=== PATIENT | female | born 1950 | race Caucasian/White ===

== ENCOUNTER 2018-02-27 09:33 | Outpatient (CLI) | payer MEDICARE ==
--- NOTE | 2018-02-27 11:48 | RAD ---
CERVICAL SPINE SERIES 3 VIEWS: Date: 02/27/18 HISTORY: Cervical radiculopathy. FINDINGS: The vertebral bodies maintain normal height. Disc narrowing seen at C5-6. There are moderate degenera tive facet changes present. Very minimal anterolisthesis of C5 on C6 is noted. IMPRESSION: Arthritic changes of spine, mainly related to prominent degenerative facet changes in the mid cervica l spine region. POS: [facility]
--- NOTE | 2018-02-27 12:26 | MRI ---
MRI LUMBAR SPINE WITHOUT CONTRAST: HISTORY: Low back pain with numbness and right foot x 6-7 weeks. COMPARISON: None. TECHNIQUE: Lumbar spine MRI is performed without intravenous Gadolinium administration. Multisequential, multip lanar imaging is performed. FINDINGS: There is 3.7 mm of anterolisthesis of L4 upon L5. Lumbar spine vertebral body height is maintained. There is no fracture. No significant STIR hyperintensity to suggest vertebral body edema or ligamen tous injury. Symmetric signal intensity of the psoas muscles. Visualized solid organs are unremarkable. Conus medullaris terminates at the inferior aspect of L1. T12-L1: Adequate disk hydration. No significant central canal stenosis. Foramen are patent. L1-L2: Adequate disk hydration. No significant central canal stenosis. Foramen are patent. L2-L3: Adequate disk hydration. No significant loss of disk space height. Nevertheless, there is g eneralized disk bulge, ligamentum flavum thickening, and facet hypertrophy without significant centra l canal stenosis. Mild right foraminal narrowing. Left neural foramen is patent. L3-L4: Minimal disk desiccation. Minimal loss of disk space height. Generalized disk bulge, ligame ntum flavum thickening, and facet hypertrophy result in minimal central canal stenosis. Minimal encr oachment upon both subarticular zones without obscuration of either traversing L4 nerve root. The ri ght neural foramen is patent. Mild left foraminal narrowing. L4-L5: Adequate disk hydration. No significant loss of disk space height. Generalized disk bulge, ligamentum flavum thickening, and facet hypertrophy result in mild central canal stenosis. Narrowing of both subarticular zones with partial obscuration of bilateral traversing L5 nerve roots. Neural foramen are patent bilaterally. L5-S1: Desiccation with moderate loss of disk space height. Generalized disk bulge. Disk material abuts but does not obscure either traversing S1 nerve root. No significant stenosis of the thecal sa c. Severe right and moderate left foraminal narrowing. IMPRESSION: 1. Severe right foraminal narrowing. Moderate to severe left foraminal narrowing, at L5-S1. 2. Disk material abuts but does not obscure either traversing L5 nerve root. POS: [facility]
--- NOTE | 2018-02-27 15:01 | MRI ---
MRI CERVICAL SPINE WITHOUT CONTRAST: HISTORY: Cervical radiculopathy. Neck and right shoulder pain with associated numbness in the 2nd and 3rd dig its, x 6-7 weeks. COMPARISON: None. TECHNIQUE: Cervical spine MRI is performed without contrast. Multisequential, multiplanar imaging is performed. FINDINGS: Appropriate T1 marrow signal intensity of the cervical vertebrae. Vertebral body height is maintaine d. There is no fracture. No significant STIR hyperintensity to suggest vertebral body edema or liga mentous injury. Visualized brain parenchyma, cervicomedullary junction, cervical cord, and the upper thoracic cord cm ve a normal size and signal intensity. Note is made of a partially empty sella. C2-C3: No significant disk-osteophyte complex. No significant central canal stenosis. Moderate rig ht foraminal narrowing. The left neural foramen is mildly narrowed. C3-C4: There is a broad-based disk-osteophyte complex with a central component that abuts the thecal sac. There is mild central canal stenosis. T neural foramen is moderately narrowed. Moderate left foraminal narrowing. C4-C5: There is a central disk-osteophyte complex that abuts the thecal sac and deforms the cord. M ild central canal stenosis. No T2 hyperintensity of the cord. Mild bilateral foraminal narrowing. C5-C6: Central disk-osteophyte complex abuts the thecal sac. Mild central canal stenosis. Patent b ilateral foraminal narrowing. C6-C7: Central/right paracentral disk-osteophyte complex effaces the ventral subarachnoid space. Th ere is deformity of the right hemicord. Moderate central canal stenosis. Mild to moderate bilateral foraminal narrowing. C7-T1: No significant central canal stenosis or foraminal narrowing. IMPRESSION: Degenerative changes of the cervical spine as above. POS: [facility]
== END 2018-02-27 09:34 | disposition home or self-care (01) ==
LOC: MRI 09:33
PROVIDERS: ATTEND Neurological Surgery
DX: M47.22 Other spondylosis with radiculopathy, cervical region (principal); M99.83 Other biomechanical lesions of lumbar region
CPT/HCPCS: 72040; 72141; 72148

== ENCOUNTER 2018-03-14 06:02 | Day surgery (SDC) | payer MEDICARE ==
[2018-03-13 13:01] VITALS: BMI 28.8
[2018-03-14] MEDS ORDERED: Thrombin 5000 UNITS/5 ML VIAL ONE (06:24)
[2018-03-14] MEDS ORDERED: Sodium Chloride 0.9% 10 ML ONE (06:24)
[2018-03-14] MEDS ORDERED: CEFAZOLIN/Water 2 GM/20 ML SYRINGE ONE (06:49)
[2018-03-14 06:59] LABS: #Basophils 0.1 thou/uL (0.0-0.2); #Eosinphils 0.2 thou/uL (0.0-0.7); #Lymphocytes 3.7 thou/uL (1.20-3.40); #Monocytes 0.7 thou/uL (0.11-0.59); #Neutrophils 3.7 thou/uL (1.40-6.50); %Basophils 1.4 % (0.0-1.0); %Monocytes 8.1 % (0.0-10.0); %Neutrophils 44.5 % (42.0-75.0); Hemoglobin 14.1 g/dL (12.0-16.0); Mean Corpuscular HGB CONC 32.7 g/dL (32.0-36.0); Mean Corpuscular Hemoglobin 29.1 pg (27.0-31.0); Mean Platelet Volume 8.4 fL (7.4-10.4); Platelet Count 302 thou/uL (130-400); RBC Distribution Width 12.4 % (11.5-14.5); Red Blood Cell (RBC) Count 4.84 mill/uL (4.20-5.40); White Blood Cell (WBC) Count 8.4 thou/uL (4.8-10.8)
[2018-03-14] MEDS ORDERED: Fentanyl 100 MCG/2 ML VIAL ONE ×2 (06:59→09:20)
[2018-03-14 07:19] LABS: Anion Gap 11 mmol/L (10-20); BUN (Urea Nitrogen) 14 mg/dL (9.8-20.1); Calc. Creatinine Clearance 80 mL/min (70-130); Calcium 9.8 mg/dL (7.8-10.44); Carbon Dioxide 26 mmol/L (23-31); Chloride 105 mmol/L (98-107); Estimated GFR-MDRD 72; Glucose 119 mg/dL (80-115); Potassium 4.2 mmol/L (3.5-5.1); Sodium 138 mmol/L (136-145)
--- NOTE | 2018-03-14 08:31 | OP ---
DATE OF PROCEDURE: 03/14/2018 SURGEON: Zenon Coyle M.D. KAIWHAKAHAERE: Zeyad Soria PA-C PROCEDURED PERFORMED: Anterior cervical discectomy C6-C7, interbody arthrodesis, intervertebral biom echanical device, local morselized autograft, demineralized bone matrix, anterior titanium instrument ation, C6-C7. DESCRIPTION IN DETAIL: The patient was brought to the operating room and intubated. She was positio rebecca supine with head in modest extension on a gel-filled donut. Incision was made in the right prece rvical area and dissecting medial to the sternocleidomastoid muscle, identified the anterior cervical spine and our level was confirmed by x-ray. We debrided anterior osteophytes, placed distraction ac ross the disc space and using the operating microscope and microdissection techniques, we completely removed the intervertebral disc. We decompressed the spinal cord and neural elements. The bony endp lates were then decorticated for the purpose of arthrodesis and appropriately sized intervertebral bi omechanical PEEK device was brought into the field, filled with demineralized bone matrix, local mors elized autograft, and tapped into place securely at C6-C7. Next, an anterior plate was brought into the field and secured to C6 and C7 using two 14 mm screws at each level. The wound was then extensiv ravinder irrigated, immaculate hemostasis was secured, and the wound was closed in anatomic layers.
[2018-03-14] MEDS ORDERED: HYDROmorphone 2 MG/ML VIAL ONE (08:48)
[2018-03-14] MEDS ORDERED: tiZANidine HCl 4 MG TAB ONE (09:09)
[2018-03-14] MEDS ORDERED: Promethazine HCl 25 MG/ML VIAL ONE (10:31)
[2018-03-14] MEDS ORDERED: Ondansetron HCl/PF 4 MG/2 ML Vial ONE (13:14)
[2018-03-14] MEDS ORDERED: Glycopyrrolate 0.2 MG/ML 5 ML SYRINGE ONE (13:14)
[2018-03-14] MEDS ORDERED: Dexamethasone 20 MG/5 ML VIAL ONE (13:14)
[2018-03-14] MEDS ORDERED: PROPOFOL 200 MG/20 ML VIAL ONE (13:14)
[2018-03-14] MEDS ORDERED: Lidocaine 1% PF 5 ML VIAL ONE (13:14)
[2018-03-14] MEDS ORDERED: HYDROcodone/Acetaminophen 5/325 mg Tablet ONE (13:25)
== END 2018-03-14 13:42 | disposition home or self-care (01) ==
LOC: SDC 06:02
PROVIDERS: ATTEND Neurological Surgery
PROC: 0RG10A0 Fusion of Cervical Vertebral Joint with Interbody Fusion Device, Anterior Approach, Anterior Column, Open Approach (ICD-10-PCS; principal; 2018-03-14)
PROC: 0RT30ZZ Resection of Cervical Vertebral Disc, Open Approach (ICD-10-PCS; 2018-03-14)
DX: M54.12 Radiculopathy, cervical region (principal); E11.9 Type 2 diabetes mellitus without complications; I48.91 Unspecified atrial fibrillation; Z79.84 Long term (current) use of oral hypoglycemic drugs; Z79.899 Other long term (current) drug therapy; Z91.040 Latex allergy status; Z88.8 Allergy status to other drugs, medicaments and biological substances
CPT/HCPCS: 36415; 76001; 80048; 85025; 93005; 93010; 96374; 96375; A4216; C1713; C1776; J1100; J1170; J2001; J2405; J2550; J2704; J3010; J3490

== ENCOUNTER 2018-03-29 14:40 | Outpatient (CLI) | payer MEDICARE ==
--- NOTE | 2018-03-29 16:22 | RAD ---
CERVICAL SPINE THREE VIEWS: 03/29/18 COMPARISON: 02/27/18 HISTORY: Cervicalgia. Status post surgery. FINDINGS: Anterior fusion plate with transvertebral body screw at C6 and C7. No perihardware lucency. Disc pros thesis at C6-C7 is noted. There is persistent anterolisthesis of C5 upon C6 measuring 2 mm. There is stable mild loss of disc space height at C5-C6. There is no prevertebral soft tissue swelling. Preden lo space is normal. Limited evaluation of the odontoid process on the open mouth projection. On the AP projection, there is stable facet hypertrophy. IMPRESSION: 1. Interval cervical fusion at C6-C7. 2. No evidence of perihardware lucency. 3. Stable grade I anterolisthesis of C5 upon C6. POS: [facility]
== END 2018-03-29 14:41 | disposition home or self-care (01) ==
LOC: TBSIIMAG 14:40
PROVIDERS: ATTEND Neurological Surgery
DX: M54.2 Cervicalgia (principal); M43.12 Spondylolisthesis, cervical region; Z98.1 Arthrodesis status
CPT/HCPCS: 72040

== ENCOUNTER 2018-05-09 15:07 | Outpatient (CLI) | payer MEDICARE ==
--- NOTE | 2018-05-09 16:33 | RAD ---
CERVICAL SPINE FOUR VIEWS: History: Cervicalgia. Follow up cervical spine surgery. Comparison: 03-29-18 FINDINGS: Cervical vertebrae maintain height. There continues to be a slight anterolisthesis at C5-6 noted on t he prior exam, stable. Anterior plate and screws at C6-7 with interbody implant appears stable. Align ment is otherwise preserved. Facet hypertrophy is noted in the mid cervical spine, especially promine nt on the right in the AP projection. IMPRESSION: Stable cervical spine findings when compared to 03-29-18. POS: [facility]
== END 2018-05-09 15:08 | disposition home or self-care (01) ==
LOC: TBSIIMAG 15:07
PROVIDERS: ATTEND Neurological Surgery
DX: M54.12 Radiculopathy, cervical region (principal)
CPT/HCPCS: 72040

== ENCOUNTER 2018-05-25 06:14 | Inpatient (IN) | payer MEDICARE ==
[2018-05-24 10:49] VITALS: BMI 28.8
[2018-05-25] MEDS ORDERED: Sodium Chloride 0.9% 10 ML ONE (06:29)
[2018-05-25 06:51] LABS: #Basophils 0.2 thou/uL (0.0-0.2); #Eosinphils 0.1 thou/uL (0.0-0.7); #Monocytes 0.7 thou/uL (0.11-0.59); #Neutrophils 3.8 thou/uL (1.40-6.50); %Basophils 1.8 % (0.0-1.0); %Eosinophils 1.2 % (0.0-10.0); %Lymphocytes 45.3 % (21.0-51.0); %Monocytes 8.4 % (0.0-10.0); %Neutrophils 43.3 % (42.0-75.0); Mean Corpuscular Hemoglobin 29.6 pg (27.0-31.0); Mean Corpuscular Volume 87.3 fL (78.0-98.0); Mean Platelet Volume 8.3 fL (7.4-10.4); Platelet Count 327 thou/uL (130-400); RBC Distribution Width 12.4 % (11.5-14.5); Red Blood Cell (RBC) Count 4.73 mill/uL (4.20-5.40); White Blood Cell (WBC) Count 8.7 thou/uL (4.8-10.8)
[2018-05-25] MEDS ORDERED: Fentanyl 250 MCG/5 ML VIAL ONE (06:54)
[2018-05-25] MEDS ORDERED: Scopolamine 1.5 mg/72 hour Patch ONE (07:05)
[2018-05-25] MEDS ORDERED: CEFAZOLIN 2 GM/50 ML BAG ONE (07:05)
[2018-05-25 07:13] LABS: Anion Gap 13 mmol/L (10-20); BUN (Urea Nitrogen) 20 mg/dL (9.8-20.1); Calc. Creatinine Clearance 79 mL/min (70-130); Calcium 9.8 mg/dL (7.8-10.44); Carbon Dioxide 22 mmol/L (23-31); Chloride 103 mmol/L (98-107); Estimated GFR-MDRD 71; Glucose 139 mg/dL (80-115); Potassium 4.3 mmol/L (3.5-5.1); Sodium 134 mmol/L (136-145)
[2018-05-25] MEDS ORDERED: Fentanyl 100 MCG/2 ML VIAL ONE ×3 (09:04→09:52)
[2018-05-25] MEDS ORDERED: Ondansetron HCl/PF 4 MG/2 ML Vial IVP PRN (09:06)
[2018-05-25] MEDS ORDERED: Lidocaine 1% PF 5 ML VIAL ONE (09:35)
[2018-05-25] MEDS ORDERED: PROPOFOL 200 MG/20 ML VIAL ONE (09:35)
[2018-05-25] MEDS ORDERED: Ondansetron PF 4 MG/2 ML Vial ONE (09:35)
[2018-05-25] MEDS ORDERED: ePHEDrine/0.9% NaCl/PF SYRINGE 50 mg/10 ml ONE (09:35)
--- NOTE | 2018-05-25 11:19 | OP ---
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 PROCEDURES PERFORMED: L4-L5 and L5-S1 right laminectomy, facetectomy, and foraminotomy. Interbody arthrodesis, intervertebral biomechanical device, local morselized autograft, demineralized bone matrix, posterolateral arthrodesis, and pedicle screw instrumentation at L4-L5 and L5-S1. DESCRIPTION OF PROCEDURE: The patient was brought to the operating room and intubated. She was rolled in the prone position on gel flat chest rolls. An incision was made exposing L4 through S1 and the level was confirmed by x-ray. We performed complete laminectomy, facetectomy, and foraminotomies at the right L4-L5 and right L5-S1 completely decompressing the neural elements at both levels. The disks were incised and debrided, and the bony endplates were decorticated for the purpose of arthrodesis. An appropriate-sized intravertebral biomechanical PEEK device was brought into the field and filled with demineralized bone matrix, local morselized autograft, and tapped into place securely at L4-L5 and L5-S1. Next, pedicle screws were placed at right L4, right L5, and right S1 using lateral fluoroscopic guidance. The randa was secured between the screws connected by nuts, which were final tightened. The wound was then extensively irrigated and maximum hemostasis was secured. A combination of demineralized bone matrix and local morselized autograft was laid over the lamina and the posterolateral surfaces for the purpose of arthrodesis. Vancomycin powder was applied, and the wound was then closed in anatomic layers. Job ID: [id number]
[2018-05-25] MEDS ORDERED: Morphine 4 MG/ML VIAL SLOW IVP PRN ×2 (12:33→12:45)
[2018-05-25] MEDS ORDERED: Promethazine HCl 25 MG/ML VIAL IM PRN (12:33)
[2018-05-25] MEDS ORDERED: Milk Of Magnesia 30 ML UDCUP PO PRN (12:33)
[2018-05-25] MEDS ORDERED: Promethazine 25 MG TAB PO PRN (12:33)
[2018-05-25] MEDS ORDERED: tiZANidine HCl 4 MG TAB PO PRN (12:33)
[2018-05-25] MEDS ORDERED: Promethazine HCl 12.5 MG SUPP PR PRN (12:33)
[2018-05-25] MEDS ORDERED: diphenhydrAMINE 25 MG CAP PO PRN (12:33)
[2018-05-25] MEDS ORDERED: Mag-Al 1200 mg/1200 mg/30 ML UDCUP PO PRN (12:33)
[2018-05-25] MEDS ORDERED: HYDROcodone/Acetaminophen 10/325 mg Tablet PO PRN (12:33)
[2018-05-25] MEDS ORDERED: diphenhydrAMINE 50 MG/ML VIAL IVP PRN (12:33)
[2018-05-25] MEDS ORDERED: traMADol HCl 50 MG TAB PO PRN ×2 (12:33)
[2018-05-25] MEDS ORDERED: Ondansetron PF 4 MG/2 ML Vial SLOW IVP PRN (12:34)
[2018-05-25] MEDS ORDERED: CEFAZOLIN 2 GM/50 ML BAG IVPB SCH (14:00)
[2018-05-25] MEDS: CEFAZOLIN 2 GM/50 ML BAG IVPB SCH ×2 (16:08→23:29)
[2018-05-25] MEDS: HYDROcodone/Acetaminophen 10/325 mg Tablet PO PRN (17:30)
[2018-05-25] MEDS: Sodium Chloride 0.9% 1,000 ML IV SCH (17:35)
[2018-05-25] MEDS: Gabapentin 100 MG CAP PO SCH (20:50)
[2018-05-25] MEDS: HYDROcodone/Acetaminophen 10/325 mg Tablet PO SCH (20:50)
[2018-05-26] MEDS: Sodium Chloride 0.9% 1,000 ML IV SCH (02:54)
[2018-05-26] MEDS ORDERED: Levothyroxine Sodium 25 MCG TAB PO SCH (06:00)
[2018-05-26] MEDS: HYDROcodone/Acetaminophen 10/325 mg Tablet PO PRN ×2 (06:27→11:22)
[2018-05-26 07:56] VITALS: TEMP 97.6
[2018-05-26] MEDS ORDERED: metFORMIN 500 MG TAB PO SCH (08:00)
[2018-05-26] MEDS: Gabapentin 100 MG CAP PO SCH (08:19)
[2018-05-26 11:22] VITALS: BP 122/74
[2018-05-26] MEDS: HYDROcodone/Acetaminophen 10/325 mg Tablet PO SCH (11:25)
--- NOTE | 2018-05-26 12:09 | DIS ---
DATE OF ADMISSION: 05/25/2018 DATE OF DISCHARGE: 05/26/2018 The patient is a 68-year-old female, status post L4-L5 and L5-S1 diskectomy and fusion. Postoperatively, she was transitioned to the Med/Surg floor, where her pain was well controlled with pain medications, she was tolerating regular diet and voiding appropriately. She has been ambulating up throughout the department without any difficulty. Speaking with the patient this morning, she reports she is having some soreness in low back, but it seems to be controlled well with her medications. She would like to go home today. She is sitting up comfortably in the chair. This morning, she is awake, alert, in no acute distress. She has free active range of motion of all extremities. No focal motor weakness. Her dressing is dry. We will plan to dismiss the patient to home. I have discussed home care and provided the patient with instructions. She has also been provided with prescriptions for Delta, Zanaflex, Keflex, and Zofran. We will follow up with the patient in 2 weeks. Please reach us in Neurosurgery for additional questions or concerns. Job ID: [id number]
[2018-05-27] MEDS ORDERED: Levothyroxine Sodium 25 MCG TAB PO SCH (06:00)
== END 2018-05-26 11:32 | disposition home or self-care (01) | DRG 460 ==
LOC: SURG A 06:14
PROVIDERS: ADMIT Neurological Surgery; ATTEND Neurological Surgery
PROC: 0SG00AJ Fusion of Lumbar Vertebral Joint with Interbody Fusion Device, Posterior Approach, Anterior Column, Open Approach (ICD-10-PCS; principal; 2018-05-25)
PROC: 0SG30AJ Fusion of Lumbosacral Joint with Interbody Fusion Device, Posterior Approach, Anterior Column, Open Approach (ICD-10-PCS; 2018-05-25)
DX: M47.896 Other spondylosis, lumbar region (principal); M54.16 Radiculopathy, lumbar region; I10 Essential (primary) hypertension; E11.9 Type 2 diabetes mellitus without complications; E78.5 Hyperlipidemia, unspecified; Z88.8 Allergy status to other drugs, medicaments and biological substances; Z91.040 Latex allergy status; Z79.84 Long term (current) use of oral hypoglycemic drugs
CPT/HCPCS: 36415; 36416; 76001; 80048; 85025; C1713; C1768; G8978-GP-CK; G8979-GP-CI; J1200; J2001; J2270; J2405; J2704; J3010; J3370; J3490

== ENCOUNTER 2018-06-16 10:40 | Outpatient (CLI) | payer MEDICARE ==
--- NOTE | 2018-06-16 11:28 | RAD ---
LUMBAR SPINE 2 VIEWS: Date: 06/16/18 HISTORY: 68-year-old female with history of lumbar radiculopathy. Follow-up surgery. FINDINGS: Laminectomy and fusion changes noted at L4-L5 and L5-S1 with right-sided pedicle screws. Generalized spondylosis of the remaining lumbar spine. No significant malalignment. IMPRESSION: Postoperative changes at L4, L5, and S1 with right-sided pedicle screws and intradiscal prosthesis wi thout significant malalignment. POS: [facility]
== END 2018-06-16 10:41 | disposition home or self-care (01) ==
LOC: TBSIIMAG 10:40
PROVIDERS: ATTEND Neurological Surgery
DX: M54.16 Radiculopathy, lumbar region (principal); Z98.1 Arthrodesis status
CPT/HCPCS: 72100

== ENCOUNTER 2018-07-25 14:03 | Outpatient (CLI) | payer MEDICARE ==
--- NOTE | 2018-07-25 15:14 | RAD ---
LUMBAR SPINE TWO VIEWS: History: M51.36 other intervertebral disc degeneration. Comparison: 2018 FINDINGS: Similar appearance to the unilateral right sided posterior spinal fusion hardware L4-S1 with discecto my changes. No acute spinal process fracture or malalignment. Extensive narrowing between the spinus processes of the lower lumbar spine. There appears to be a bone graft along the left sided posterior elements. IMPRESSION: Post-operative appearance. POS: [facility]
== END 2018-07-25 14:04 | disposition home or self-care (01) ==
LOC: TBSIIMAG 14:03
PROVIDERS: ATTEND Neurological Surgery
DX: M51.36 Other intervertebral disc degeneration, lumbar region (principal); Z98.890 Other specified postprocedural states
CPT/HCPCS: 72100

== ENCOUNTER 2018-09-19 13:50 | Outpatient (CLI) | payer MEDICARE ==
--- NOTE | 2018-09-19 14:11 | RAD ---
XR Lumbar Spine 2 Or 3 View History: [M 54.16 lumbar radiculopathy] Comparison: Radiograph of July 25, 2018 Findings: Similar appearance right unilateral posterior spinal fusion from L4-S1 with discectomy arellano ges and vertebral spacers. No migration of the vertebral spaces. There is left L4/L5 bone grafting. Abnormal narrowing of the interspinous space at L2/L3. No new listhesis. No acute fracture or malalignment. Impression: Similar postoperative appearance
== END 2018-09-19 13:51 | disposition home or self-care (01) ==
LOC: TBSIIMAG 13:50
PROVIDERS: ATTEND Neurological Surgery
DX: M54.16 Radiculopathy, lumbar region (principal); Z98.890 Other specified postprocedural states
CPT/HCPCS: 72100

== ENCOUNTER 2018-10-06 13:05 | Outpatient (CLI) | payer MEDICARE ==
--- NOTE | 2018-10-09 09:19 | MRI ---
MRI CERVICAL SPINE: Multiplanar, multisequential imaging of cervical spine obtained. INDICATION: Cervical radiculopathy. Cervical spine fusion May 2018. COMPARISON: Comparison is made to MRI from 02/27/2018. FINDINGS: Postoperative changes are now noted at C6-C7. Anterior plate and screws transfix this level and prod uce artifact. Interbody implant infusion. The other vertebral bodies maintain height and alignment. Vertebral body signal appears normal. Dis k spaces are otherwise maintained. Mild disk bulge and spondylosis at C3-4 has a similar appearance to the prior study. These changes d o abut the anterior cord. There is evidence of mild left foraminal narrowing at this level due to hy pertrophic change. At C4-5, disk bulge and spondylosis abut the anterior cord and have a similar appearance to the prior study. Mild bilateral foraminal narrowing due to facet and uncinate hypertrophy is similar to the p rior exam. At C5-6, minimal disk bulge and spondylosis efface the anterior subarachnoid space and is unchanged f rom prior exam. At C6-7, postoperative changes are noted. Posterior spondylosis impinges on and mildly flattens the anterior cord similar to the prior study. Bilateral foraminal narrowing is again noted. At C7-T1, no significant disk bulge or spondylosis. The anterior subarachnoid space is normally main tained. IMPRESSION: 1. Posterior disk bulge and spondylosis impinge on and mildly flatten the cord at C6-7. Postoperati ve changes at this level are noted. The cervical cord signal is normal with no evidence of myelomalacia or edema. 2. Spondylytic changes are also noted at C3-4 and C4-5 as described above. POS: [facility]
== END 2018-10-06 13:06 | disposition home or self-care (01) ==
LOC: BICMRI 13:05
PROVIDERS: ATTEND Neurological Surgery
DX: M54.12 Radiculopathy, cervical region (principal); M50.123 Cervical disc disorder at C6-C7 level with radiculopathy; M47.22 Other spondylosis with radiculopathy, cervical region; Z98.890 Other specified postprocedural states
CPT/HCPCS: 72141

== ENCOUNTER 2019-04-19 11:19 | Outpatient (CLI) | payer MEDICARE ==
--- NOTE | 2019-04-19 11:33 | RAD ---
EXAM: XR Lumbar Spine 2 Or 3 View PROVIDED CLINICAL HISTORY: Low back pain. History of prior low back surgery. COMPARISON: 09/19/2018 FINDINGS: Again noted are postsurgical changes lower lumbar spine related to posterior fusion of the L4-5 and L 5-S1 levels. Unilateral right-sided pedicular screws and posterior randa transfix these levels. Intradiscal prostheses are again noted in place and stable in position. Multilevel osteophytes are seen anteriorly. The vertebral body heights are within normal limits. No f racture or subluxation is identified. Calcifications are seen in the abdominal aorta and involving the iliac arteries. IMPRESSION: Stable postoperative and degenerative changes of the lumbar spine.
== END 2019-04-19 11:20 | disposition home or self-care (01) ==
LOC: TBSIIMAG 11:19
PROVIDERS: ATTEND Neurological Surgery
DX: M54.5 Low back pain (principal); M47.816 Spondylosis without myelopathy or radiculopathy, lumbar region; Z98.890 Other specified postprocedural states
CPT/HCPCS: 72100